=== PATIENT | female | born 1970 | race Caucasian/White ===

== ENCOUNTER 2017-12-16 09:54 | Outpatient (RCR) | payer SELFPAY | END 2017-12-21 | LOC: ST 09:54 | PROVIDERS: ATTEND Internal Medicine | DX: I69.322 Dysarthria following cerebral infarction (principal); I69.320 Aphasia following cerebral infarction | CPT/HCPCS: 97139 ==

== ENCOUNTER 2018-01-06 09:50 | Outpatient (RCR) | payer SELFPAY | END 2018-01-21 | LOC: ST 09:50 | PROVIDERS: ATTEND Internal Medicine | DX: I69.922 Dysarthria following unspecified cerebrovascular disease (principal); R47.01 Aphasia | CPT/HCPCS: 97139 ==